=== PATIENT | female | born 1960 | race Caucasian/White ===

== ENCOUNTER 2024-06-05 10:22 | Emergency (ER) | payer OTHER, MEDICARE, SELFPAY ==
[2024-06-05 10:36] VITALS: BP 166/103
--- NOTE | 2024-06-05 10:57 | ED.GENMED ---
History of Present Illness
<Mireya Mcguire PA-C - Last Filed: 06/05/24 17:30>
General
Chief Complaint: Rabies
Source: patient
Exam Limitations: none
Time Seen by Provider: 06/05/24 10:38
Nursing documentation reviewed up to this point in time: agreed with
History of Present Illness
History of Present Illness:
63-year-old female presenting to the emergency department for evaluation following judd bite to left calf. Patient states that on Friday afternoon she was walking [place] when she felt a tug on the back of her pants. She turned around
and saw a judd scurrying away. Patient states that she later noticed a very superficial abrasion to her left calf exactly in the area where the judd grabbed her pants. She is unsure if the Judd actually bit her patient's daughter convince her to come
to the emergency department for evaluation and possible rabies vaccination series. Patient denies any associated fever, chills, pain or swelling in area of bite.
Patient is unsure when her last tetanus vaccination was. She plans to contact her primary care doctor to access record and have updated if needed with her primary care
Patient has never received the rabies vaccination series in the past. No history of reactions to vaccines.
Review of Systems
<Mireya Mcguire PA-C - Last Filed: 06/05/24 17:30>
Review of Systems
Allergies reviewed?: Yes
All Other Systems: ROS reviewed and negative except as documented in HPI and ROS
Phy Exam
<Mireya Mcguire PA-C - Last Filed: 06/05/24 17:30>
Physical Exam
Physical Exam:
Vitals: Patient's vital signs are stable. Afebrile
General: Patient is well appearing, no acute distress
Skin: Very superficial small abrasion to left mid calf. No surrounding erythema, edema, or red streaking. No drainage.
Head: Normocephalic, atraumatic
Throat: Protecting airway
Neck: Normal ROM, no cervical spine tenderness
Cardiac: Regular rate
Pulm: No apparent respiratory distress
Abdomen: Nondistended
Extremities: No evidence of cyanosis or edema
Neuro: Grossly intact
Psychiatric: Normal affect.
Course
<Mireya Mcguire PA-C - Last Filed: 06/05/24 17:30>
Orders/Labs/Results
Orders:
Orders
06/05/24 11:08
Rabies Immune Globulin/Pf [HyperRAB] 1,107 unit IM NOW STA
06/05/24 11:15
Rabies Vaccine (Pcec)/Pf [Rabavert Rabies Vacc W-Diluent] 2.5 unit IM .ONCE ONE
06/05/24 11:44
Tetanus/Diphth/Acelpertussis [Adacel] 0.5 ml IM .ONCE ONE
Vital Signs
Initial and Last Documented VS:
Initial Vital Signs
Temp Pulse Resp BP Pulse Ox
98.6 F 98 18 166/103 98
06/05/24 10:36 06/05/24 10:36 06/05/24 10:36 06/05/24 10:36 06/05/24 10:36
Last Documented Vital Signs
Temp Pulse Resp BP Pulse Ox
98.6 F 77 18 155/88 98
06/05/24 10:36 06/05/24 11:40 06/05/24 10:36 06/05/24 11:40 06/05/24 10:36
<Rolan Sesay MD - Last Filed: 06/05/24 11:50>
Orders/Labs/Results
Orders:
Orders
06/05/24 11:08
Rabies Immune Globulin/Pf [HyperRAB] 1,107 unit IM NOW STA
06/05/24 11:15
Rabies Vaccine (Pcec)/Pf [Rabavert Rabies Vacc W-Diluent] 2.5 unit IM .ONCE ONE
06/05/24 11:44
Tetanus/Diphth/Acelpertussis [Adacel] 0.5 ml IM .ONCE ONE
Vital Signs
Initial and Last Documented VS:
Initial Vital Signs
Temp Pulse Resp BP Pulse Ox
98.6 F 98 18 166/103 98
06/05/24 10:36 06/05/24 10:36 06/05/24 10:36 06/05/24 10:36 06/05/24 10:36
Last Documented Vital Signs
Temp Pulse Resp BP Pulse Ox
98.6 F 77 18 155/88 98
06/05/24 10:36 06/05/24 11:40 06/05/24 10:36 06/05/24 11:40 06/05/24 10:36
<Mireya Mcguire PA-C - Last Filed: 06/05/24 17:30>
MDM/Problems Addressed
Differential Diagnosis Includes:
Not limited to: Pox bite, need for rabies prophylaxis
MDM/Problems Addressed:
63-year-old female presenting following possible judd bite to left calf 3 days prior while walking [place]. No fever, chills, pain in left calf. Patient is ambulating independently without difficulty. Presents for evaluation and possible
rabies vaccination series. Patient hypertensive on arrival although normalized on my assessment. Otherwise vital signs are stable. Patient is afebrile. Well-appearing, in no apparent distress. She is nontoxic, conversational. Physical exam as
above. There is a very small abrasion/possible small puncture wound to the left mid calf without any drainage, or surrounding erythema or streaking. No signs of surrounding cellulitis. Will initiate rabies vaccination series. Patient will
receive rabies immunoglobulin today as well as dose 1 of vaccination today. Will refer patient to infusion clinic for 3 additional vaccination doses. Tetanus will be updated. Patient will be given prescription for Augmentin if signs infection
develop�although I find this unlikely at this time given it has been over 72 hours since bite and currently show no signs of infection. Patient tolerated immunoglobulin and vaccination well. Patient stable for discharge with close return
precautions. Patient seen by attending physician.
Chronic conditions affecting care:
N/A
Acute Exacerbation and/or Progression of Chronic Illness:
N/A
<Mireya Mcguire PA-C - Last Filed: 06/05/24 17:30>
*Pulse Oximetry
Patient hypoxic: no
*EKG
Interpreted by ED Provider?: NA
*Shipping Coordinator Interpretation
Rate: Shipping Coordinator- N/A
*Critical Care Note
Total Time (30-74mins, 75-104mins- exclusive of procedures): Not Applicable
ED Attending Note
<Mireya Mcguire PA-C - Last Filed: 06/05/24 17:30>
-
Portions of this chart may have been created with voice recognition software.� Occasional wrong word or��sound alike� substitutions may have occurred due to the inherent limitations of voice recognition software.
<Rolan Sesay MD - Last Filed: 06/05/24 11:50>
ED Attending Note
Patient seen and examined by attending physician: Yes
ED Attending Note:
I have seen and evaluated the patient with a [id number] encounter. I have spoken to the advance practicer provider and involved in the medical history, the physical exam, medical decision making.
Evaluation and management service: agree unless noted differently below.
Results interpretation: agree unless noted differently below.
Focused HPI: 63-year-old female with history of hypertension, GERD presents with a animal bite. Patient was [place] Friday and was bitten on the calf by a judd. Unsure of last tetanus. Presents for rabies prophylaxis. Has not
noticed any redness around the area has been applying topical antibiotic ointment.
Physical exam: Awake alert not in distress. Hypertensive otherwise normal vitals. She is a tiny puncture wound on the left calf, no erythema, warmth, tenderness, drainage.
Medical Decision Makin-year-old female presents with animal bite. Unsure last tetanus�will update here. Will provide postexposure prophylaxis for rabies. Bite happened on Friday now 3 days later there are no signs of infection�wrote a
prescription for Augmentin and advised to watch the area closely and if she begins to show signs of infection can start antibiotic but at this point I do not think empirically treating is necessary after 72 hours with no signs of infection on exam
today. Patient clear on return precautions and instructions regarding rabies postexposure prophylaxis series. All questions answered.
Discharge Plan
Departure
Patient Disposition: Home (Routine Discharge)
Date of Disposition: 06/05/24
Time of Disposition: :
Patient with high blood pressure during this ER visit?: Yes
Condition: Good
Covid-19: Not Applicable
Discharge Problem:
Rabies, need for prophylactic vaccination against
Instructions: Animal Bites (DC), Rabies
Prescriptions:
New
RabAvert (PF) 2.5 unit suspension for reconstitution
1 ml IM ONCE Qty: 3 0RF
Rx Instructions:
Inject 1ML IM on 06/08/24, 06/11/24, and 06/18/24
amoxicillin-pot clavulanate 875-125 mg tablet
1 tab PO BID Qty: 14 0RF
Stand Alone Forms: Rabies Vaccine Post Exp Dosing
Activity Restrictions/Additional Instructions:
RETURN TO THE EMERGENCY DEPARTMENT WITH ANY FEVERS, CHILLS, SHORTNESS OF BREATH/DIFFICULTY BREATHING, SIGNIFICANT REDNESS/SWELLING/PAIN AROUND INJECTION SITES, OR ANY OTHER CONCERNS
-As discussed�you will require 3 additional doses of the rabies vaccine. This should be completed on 06/08/24, 06/11/24, and 06/18/24. This can be done at the infusion clinic. You should contact them to schedule these appointments. Please be sure
to bring the prescription with you to the infusion clinic.
-Follow-up with your primary care for further evaluation/management if needed. You should contact them to confirm your last tetanus shot and have booster if needed.
Monitor symptoms closely and return to the emergency department with any acute worsening/new send
Interventions
Interventions:
*Risk Screen - Suicide Last Done: 06/05/24 10:23
*General Assessment Last Done: 06/05/24 10:36
*Neglect/Abuse Screening Last Done: 06/05/24 10:36
ED- Fall Risk Assessment Last Done: 06/05/24 10:57
*ED COVID-19 Vaccine History Last Done: 06/05/24 10:57
*Nursing Disposition Last Done: 06/05/24 11:40
Discharge Date and Time
Discharge Date/Time: 06/05/24 11:49
Print Language: PERSIAN
[2024-06-05 11:00] VITALS: BMI 22.1
[2024-06-05] MEDS: RABAVERT RABIES VACC W-DILUENT 2.5 UNIT IM (11:23)
[2024-06-05] MEDS: HyperRAB 1107 UNIT IM (11:24)
[2024-06-05 11:40] VITALS: BP 155/88
[2024-06-05] MEDS: ADACEL 0.5 ML IM (11:46)
== END 2024-06-05 11:49 | disposition home or self-care (01) ==
LOC: EMR 10:22
PROVIDERS: EMERGENCY PHYSICIAN Emergency Medicine; FAMILY PHYSICIAN Family Medicine
DX: S80.812A Abrasion, left lower leg, initial encounter (principal); W55.81XA Bitten by other mammals, initial encounter; Y93.01 Activity, walking, marching and hiking; Y92.821 Forest as the place of occurrence of the external cause; Z20.3 Contact with and (suspected) exposure to rabies; Z23 Encounter for immunization; Z29.14 Encounter for prophylactic rabies immune globulin; I10 Essential (primary) hypertension; K21.9 Gastro-esophageal reflux disease without esophagitis; Z88.1 Allergy status to other antibiotic agents
CPT/HCPCS: 99284; 90471; 96372; 90375; 90675; 90715

== ENCOUNTER 2024-06-18 11:29 | Outpatient (RCR) | payer OTHER, MEDICARE, SELFPAY ==
[2024-06-08 13:15] VITALS: BP 144/73
[2024-06-08] MEDS: RABAVERT RABIES VACC W-DILUENT 2.5 UNIT IM (13:24)
[2024-06-11 11:41] VITALS: BP 144/75
[2024-06-11] MEDS: RABAVERT RABIES VACC W-DILUENT 2.5 UNIT IM (11:52)
[2024-06-18 11:30] VITALS: BP 138/72
[2024-06-18] MEDS: RABAVERT RABIES VACC W-DILUENT 2.5 UNIT IM (11:42)
== END 2024-06-21 08:56 | disposition home or self-care (01) ==
LOC: OID 11:29
PROVIDERS: ATTENDING PHYSICIAN Physician Assistant; FAMILY PHYSICIAN Family Medicine
DX: Z20.3 Contact with and (suspected) exposure to rabies (principal); Z23 Encounter for immunization
CPT/HCPCS: 90471; 90675

== ENCOUNTER 2025-02-03 15:54 | Emergency (ER) | payer MEDICARE, SELFPAY ==
[2025-02-03 16:01] VITALS: BP 152/94
[2025-02-03 16:34] LABS: % Basophils 0.5 % (0-2); % Eosinophils 0.8 % (0-6); % Immature Granulocytes 0.1 % (0-0.5); % Lymphocytes 30.4 % (20.5-51.1); % Monocytes 7.2 % (1.7-9.3); Absolute Eosinophils 0.1 10^3/uL (0-0.7); Absolute Lymphocytes 2.3 10^3/uL (1.2-3.4); Absolute Monocytes 0.5 10^3/uL (0.1-0.6); Absolute Neutrophils 4.6 10^3/uL (1.4-6.5); Hemoglobin 14.7 g/dL (12.0-16.0); Mean Corp Hgb Conc. 34.2 g/dL (33.0-37.0); Mean Corpuscular Hgb 35.9 pg (27.0-31.0); Mean Corpuscular Volume 104.9 fL (81.0-99.0); Mean Platelet Volume 9.6 fL (7.4-10.4); Nucleated Red Blood Cells % 0 %; Platelet Count 264 10^3/uL (130-400); Red Cell Dist. Width 11.6 % (11.5-14.5); White Blood Cell Count 7.5 10^3/uL (4.8-10.8)
[2025-02-03 16:38] LABS: ALT (SGPT) 20 U/L (0-35); AST (SGOT) 25 U/L (14-36); Albumin 4.3 g/dl (3.5-5.0); Alkaline Phosphatase 104 U/L (38-126); Blood Urea Nitrogen 9 mg/dl (7-17); Calcium 9.1 mg/dl (8.4-10.2); Carbon Dioxide 30 mmol/L (22-30); Chloride 106 mmol/L (98-107); Glucose 106 mg/dl (70-99); Potassium 4.1 mmol/L (3.5-5.1); Sodium 139 mmol/L (135-145); Total Bilirubin 0.5 mg/dl (0.2-1.3); Total Protein 6.7 g/dl (6.3-8.2); eGFR > 60.00
[2025-02-03 16:44] LABS: Troponin I < 0.012 ng/ml
--- NOTE | 2025-02-04 23:12 | ED.GENMED ---
History of Present Illness
General
Chief Complaint: Chest Pain
Source: patient
Exam Limitations: none
Time Seen by Provider: 02/03/25 19:42
Nursing documentation reviewed up to this point in time: agreed with
History of Present Illness
History of Present Illness:
Patient to ED wt complaint of intermittent chest pain x 2 days. reports pain as sharp. Pain does not radiate. No associated n/v/diaphoresis. No SOB or cough. Brought self to ED for eval. She is currently pain free.
Past History
Past History
ED Past Medical History: GERD and HTN
Review of Systems
Review of Systems
Allergies reviewed?: Yes
All Other Systems: ROS reviewed and negative except as documented in HPI and ROS
Constitutional: Reports no symptoms
EENT: Reports no symptoms
Respiratory: Reports no symptoms
Cardiac: Reports chest pain
ABD/GI: Reports no symptoms
: Reports no symptoms
Musculoskeletal: Reports no symptoms
Skin: Reports no symptoms
Neurological: Reports no symptoms
Psychiatric: Reports no symptoms
Phy Exam
General Physical Exam
General Presentation: well appearing and no apparent distress
General age: appears stated age
General Skin: warm and dry
General Habitus: normal
Cardiovascular Exam
Cardiovascular Exam: regular rate/rhythm and no edema
Pulmonary Exam
Pulmonary Exam: lungs clear and no respiratory distress
Musculoskeletal Exam
Musculoskeletal Exam: full ROM and no edema
Skin Exam
Skin Exam: normal color and warm/dry
Psychiatric Exam
Psychiatric Exam: normal mood/affect
Scores
Heart Score for Chest Pain Patients
STEMI patient?: No
History: Slightly or Non-Suspicious
ECG: Normal
Age: >/= 65 years
Risk Factors: 1 or 2 Risk Factors
Troponin: </= Normal Limit
Heart Score for Chest Pain Patients: 3
Heart Score Risk: 2.5% MACE over next 6 weeks
Course
Orders/Labs/Results
Orders:
Orders
02/03/25 15:55
ECG [Electrocardiogram (*1)] Urgent
Reason for Study: Chest Pain
EKG- Treatment ONCE
02/03/25 16:04
CXR2 [CR Chest - 2 Views ] Urgent
Comment:
Reason For Exam: pain
02/03/25 16:11
Complete Blood Count/With Diff Urgent
Comprehensive Metabolic Panel Urgent
Troponin I Urgent
Abnormal Lab Results
02/03/25
16:11
RBC 4.10 L 10^6/uL
(4.20-5.40)
MCV 104.9 H fL
(81.0-99.0)
MCH 35.9 H pg
(27.0-31.0)
Glucose 106 H mg/dl
(70-99)
02/03/25 16:11
02/03/25 16:11
Vital Signs
Initial and Last Documented VS:
Initial Vital Signs
Temp Pulse Resp BP Pulse Ox
99.2 F 97 16 152/94 99
02/03/25 16:01 02/03/25 16:01 02/03/25 16:01 02/03/25 16:01 02/03/25 16:01
Last Documented Vital Signs
Temp Pulse Resp BP Pulse Ox
99.2 F 97 16 152/94 99
02/03/25 16:01 02/03/25 16:01 02/03/25 16:01 02/03/25 16:01 02/03/25 16:01
*Pulse Oximetry
Patient hypoxic: no
*EKG
Interpretation: normal
Rate: normal
Rhythm: sinus
*Critical Care Note
Total Time (30-74mins, 75-104mins- exclusive of procedures): Not Applicable
Update Note
Update Note:
Patient to ED with complaint of intermittent sharp chest pain. She has remained asymptomatic while in ED. Labs reviewed with her. EKG NSR, troponin neg. VSS. Doubtful for ACS. WIll discharge home tonight and she jere follow up with her PCP.
SHe was given instructions on s/s to return to ED and she is agreeable to plan.
ED Attending Note
-
Portions of this chart may have been created with voice recognition software.� Occasional wrong word or��sound alike� substitutions may have occurred due to the inherent limitations of voice recognition software.
Discharge Plan
Departure
Patient Disposition: Home (Routine Discharge)
Date of Disposition: 02/03/25
Time of Disposition: 20:05
Patient with high blood pressure during this ER visit?: No
Condition: Good
Covid-19: Not Applicable
Discharge Problem:
Chest pain
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
Prescriptions:
No Action
RabAvert (PF) 2.5 unit suspension for reconstitution
1 ml IM ONCE Qty: 3 0RF
Rx Instructions:
Inject 1ML IM on 06/08/24, 06/11/24, and 06/18/24
losartan 50 mg Tablet
50 mg PO DAILY
omeprazole 40 mg Capsule,Delayed Release(Dr/Ec)
40 mg PO DAILY
Activity Restrictions/Additional Instructions:
REturn to the emergency department immediately for any changes in/worsening of your symptoms.
Interventions
Interventions:
*Risk Screen - Suicide Last Done: 02/03/25 16:01
*Neglect/Abuse Screening Last Done: 02/03/25 16:01
*ED- Fall Risk Assessment Last Done: 02/03/25 16:01
*Nursing Disposition Last Done: 02/03/25 20:21
ED- Cardiac Assessment Last Done: 02/03/25 20:20
Discharge Date and Time
Discharge Date/Time: 02/03/25 20:22
Print Language: ALBANIAN
== END 2025-02-03 20:22 | disposition home or self-care (01) ==
LOC: EMR 15:54
PROVIDERS: Student in an Organized Health Care Education/Training Program; EMERGENCY PHYSICIAN Student in an Organized Health Care Education/Training Program; FAMILY PHYSICIAN Family Medicine
DX: R07.9 Chest pain, unspecified (principal); I10 Essential (primary) hypertension; K21.9 Gastro-esophageal reflux disease without esophagitis
CPT/HCPCS: 99285; 71046; 80053; 84484; 85025; 93005